=== PATIENT | male | born 1945 | race Caucasian/White ===

== ENCOUNTER 2017-07-22 15:23 | Outpatient (CLI) | payer MEDICARE, BC ==
--- NOTE | 2017-07-22 16:43 | ULT ---
BILATERAL UPPER EXTREMITY VENOUS MAPPIN07/22/17 HISTORY: End-stage renal disease. Evaluate for placement of arteriovenous dialysis fistula. FINDINGS: There is normal flow seen within the bilateral internal jugular and subclavian veins with normal lume n compressibility involving each axillary vein. RIGHT UPPER EXTREMITY BRACHIAL ARTERY: 5.6 mm RADIAL ARTERY: 3.1 mm ULNAR ARTERY: 2.3 mm CEPHALIC VEIN Upper Arm: 1.3 mm Mid Arm: 0.9 mm Distal Arm: 1.7 mm Antecubital Fossa: 1.5 mm Proximal Forearm: 2 mm Mid Forearm: 3.3 mm Distal Forearm: 3.2 mm BASILIC VEIN Upper Arm: 8.5 mm Mid Arm: 5.3 mm Distal Arm: 5.1 mm Antecubital Fossa: 4.8 mm Proximal Forearm: 1.9 mm Mid Forearm: 1.3 mm Distal Forearm: 1.8 mm LEFT UPPER EXTREMITY BRACHIAL ARTERY: 5.2 mm RADIAL ARTERY: 3.2 mm ULNAR ARTERY: 3 mm CEPHALIC VEIN Upper Arm: 1.7 mm Mid Arm: 1.3 mm Distal Arm: 1.2 mm Antecubital Fossa: 1.9 mm Proximal Forearm: 2.7 mm Mid Forearm: 2.7 mm Distal Forearm: 3 mm BASILIC VEIN Upper Arm: 5.2 mm Mid Arm: 4.8 mm Distal Arm: 4.3 mm Antecubital Fossa: 2.9 mm Proximal Forearm: 8.1 mm Mid Forearm: 1.4 mm Distal Forearm: 1.9 mm IMPRESSION: The venous diameters of the bilateral upper extremity basilic and cephalic veins are as described abo sarah. POS: [facility]
== END 2017-07-22 15:24 | disposition home or self-care (01) ==
LOC: ULT 15:23
PROVIDERS: ATTEND Internal Medicine
DX: Z01.818 Encounter for other preprocedural examination (principal); N18.6 End stage renal disease
CPT/HCPCS: 93970; G0365

== ENCOUNTER 2017-08-24 16:54 | Outpatient (CLI) | payer MEDICARE, BC ==
[2017-08-24 18:00] LABS: #Basophils 0.1 thou/uL (0.0-0.2); #Eosinphils 0.7 thou/uL (0.0-0.7); #Lymphocytes 1.5 thou/uL (1.20-3.40); #Monocytes 0.8 thou/uL (0.11-0.59); #Neutrophils 5.9 thou/uL (1.40-6.50); %Basophils 1.1 % (0.0-1.0); %Eosinophils 7.5 % (0.0-10.0); %Lymphocytes 17.1 % (21.0-51.0); %Monocytes 9.2 % (0.0-10.0); %Neutrophils 65.1 % (42.0-75.0); Hemoglobin 11.6 g/dL (14.0-18.0); Mean Corpuscular HGB CONC 32.6 g/dL (32.0-36.0); Mean Corpuscular Hemoglobin 29.8 pg (27.0-31.0); Mean Corpuscular Volume 91.3 fl (80.0-94.0); Mean Platelet Volume 7.5 fL (7.4-10.4); Platelet Count 239 thou/uL (130-400); RBC Distribution Width 15.6 % (11.5-14.5); Red Blood Cell (RBC) Count 3.89 mill/uL (4.70-6.10)
[2017-08-24 18:22] LABS: Anion Gap 18 mmol/L (10-20); BUN (Urea Nitrogen) 73 mg/dL (8.4-25.7); Calc. Creatinine Clearance 0 mL/min (70-130); Calcium 9.4 mg/dL (7.8-10.44); Carbon Dioxide 22 mmol/L (23-31); Chloride 100 mmol/L (98-107); Estimated GFR-MDRD 8; Glucose 107 mg/dL (83-110); Potassium 4.9 mmol/L (3.5-5.1); Sodium 135 mmol/L (136-145)
== END 2017-08-24 16:55 | disposition home or self-care (01) ==
LOC: LABBT 16:54
PROVIDERS: ATTEND Specialist
DX: Z01.818 Encounter for other preprocedural examination (principal); I12.0 Hypertensive chronic kidney disease with stage 5 chronic kidney disease or end stage renal disease; N18.6 End stage renal disease
CPT/HCPCS: 80048; 85025; 93005; 93010

== ENCOUNTER 2017-08-28 08:01 | Day surgery (SDC) | payer MEDICARE, BC ==
[2017-08-24 17:00] VITALS: BMI 26.3
--- NOTE | 2017-08-24 23:00 | HP ---
HISTORY OF PRESENT ILLNESS: Mr. 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 Dialyzes, [facility] [place] Thursday, , and Thursday, followed by Dr. Se cruz. Patient had a dialysis catheter placed at [facility] 05/27/2017. He has been di alyzing Thursday, , and Thursday at [facility]. He presents for more definitive dialysis access. Ultrasound vein mapping in both arms at [facility] on 07/22/2017 reveals cephalic v ein, right, 1.3, 0.9, 1.7 mm. At the antecubital fossa, 1.5 mm, distal forearm 2 mm, 3.3 and 3.2 mm, basilic vein upper arm 8.5, 5.3, 5.1, 4.8 mm. Left arm cephalic vein 1.7, 1.3, 1.2, 1.9, 2.7, 2.7, 3 mm, basilic vein 5.2, 4.8, 4.3 mm, 2.9 mm antecubital fossa, 8.1, 1.4, 1.9 mm distal forearm. Asim n is for a right arm fistula, possible Margaret at the wrist or possible more proximal fistula, possibl y, he may need a basilic vein transposition fistula has been discussed. Patient's home health has be en visited by the peritoneal dialysis nurse. He has PAD. He does not consider that, but is a future consideration. PAST MEDICAL HISTORY: BPH, coronary artery disease, status post myocardial infarction 2017 with 2 co ronary stents placed. Right kidney disease, stroke in the past 20 years ago, living with a left eleno paresis. He still has pain from this, although moderate, has recovered, diabetes mellitus, insulin-d ependent type 2, hypertension, hyperlipidemia, history of renal cell carcinoma. ALLERGIES: None. PAST SURGICAL HISTORY: Left nephrectomy for renal cell carcinoma, coronary stents placed. He has lopez d a colonoscopy many years ago. REVIEW OF SYSTEMS: Otherwise, noncontributory. PHYSICAL EXAMINATION: VITAL SIGNS: 177 pounds, 110/61, 76, 99.3 degrees. HEENT: Unremarkable. LUNGS: Clear to auscultation. CARDIAC: Regular rate and rhythm without murmur or gallop. ABDOMEN: Soft, nontender, no masses. Supraumbilical scar for nephrectomy extraction point. EXTREMITIES: Unremarkable. Palpable radial pulses noted to possible vein seen. ASSESSMENT AND PLAN: End-stage renal disease - hemodialysis catheter dependent since 05/27/2017 when it was placed at [facility]. He dialyzes at [facility] in [place], Thursday, , Thursday. He lives in [place]. Plan is to place a right arm primary fistula, Margaret versus more proximal. He understands the possibility, he may need a staged basilic vein transposition versus pro sthetic graft. He understands risks of infection, bleeding, reoperation, malfunction of the fistula and consents.
[2017-08-28] MEDS ORDERED: CEFAZOLIN/Water 2 GM/20 ML SYRINGE ONE (08:32)
[2017-08-28] MEDS ORDERED: Midazolam HCl 2 mg/2 ml Vial ONE (09:02)
[2017-08-28] MEDS ORDERED: Fentanyl 100 MCG/2 ML VIAL ONE (09:02)
[2017-08-28] MEDS ORDERED: Meperidine HCl/PF 25 MG/ML VIAL ONE ×2 (09:49)
[2017-08-28] MEDS ORDERED: Heparin 5,000 UNITS/ML VIAL ONE (09:52)
[2017-08-28] MEDS ORDERED: Protamine Sulfate 50 MG/5 ML VIAL ONE (09:52)
[2017-08-28] MEDS ORDERED: Bupivacaine HCl 0.5%/Epinephrine 1:200,000/PF 30 ml Vial ONE ×2 (09:52→15:46)
[2017-08-28] MEDS ORDERED: Lidocaine 2% 10 ML INJ ONE (09:52)
[2017-08-28] MEDS ORDERED: Propofol 500 MG/50 ML VIAL ONE (10:11)
[2017-08-28] MEDS ORDERED: Heparin 10,000 UNITS/ 10 ML VIAL ONE ×2 (14:40→16:55)
--- NOTE | 2017-08-28 16:14 | OP ---
DATE OF PROCEDURE: 08/28/2017 PREOPERATIVE DIAGNOSES: End-stage renal disease, poor veins by ultrasound vein mapping left arm, sup erior right arm suggesting basilic vein possibility fistula. POSTOPERATIVE DIAGNOSES: End-stage renal disease, poor veins by ultrasound vein mapping left arm, ramirez perior right arm suggesting basilic vein possibility fistula. PROCEDURES PERFORMED: Right arm primary AV fistula, perforating branch antecubital vein to proximal radial artery, which was of the excellent size. Outflow basilic vein only without communication to t he cephalic vein. Retrograde antecubital vein was large and patency maintained. Calibration to a 4 mm dilator, outflow basilic vein. Exploration of right wrist noting cephalic vein at the wrist to be too small. ANESTHESIA: Regional anesthesia. ESTIMATED BLOOD LOSS: 27 mL. BLOOD TRANSFUSED: None. PROCEDURE IN DETAIL: The patient was taken to the operating room under regional anesthesia and intra venous sedation, right upper extremity was prepped with ChloraPrep, draped in routine fashion. An in cision was made in the proximal volar forearm longitudinally below the antecubital fossa, carried noah n through the skin and subcutaneous tissue and a very large antecubital vein appreciated. It was lisandro reciated that there was no communication of the cephalic vein. Cephalic vein was searched for latera lly and could not be found. Basilic vein went to the medial arm as expected. A perforating branch a ntecubital vein dissected free and directed towards a large radial artery. Radial artery was dissect ed free and surrounded with Silastic loop. The patient was given 6000 units of heparin intravenously . Considering the large antecubital vein, incision was made in the right wrist carried down through the skin and subcutaneous tissue. The cephalic vein at the wrist was inadequate and this wound was c losed by approximating subcutaneous tissues with 3-0 Monocryl, skin with subdermal 4-0 Monocryl. Att ention then was turned to the proximal forearm. A perforating branch and antecubital vein dissected free. Branches divided between 4-0 silk ties and clips and spatulated over a branch point and interr ogated with coronary dilators, passing coronary dilators from a 2 mm to a 4 mm coronary dilator out t he basilic vein outflow. There was a large antecubital vein, retrograde preserved. Proximal radial artery was clamped proximally and distally and longitudinal arteriotomy made sharply and elongated wi th the Eli scissors for a 2 cm anastomosis and end perforating branch of the antecubital vein to th e side proximal radial artery anastomosis with continuous suture of 6-0 Prolene, releasing vascular c lamps, gaining hemostasis with 6-0 Prolene and 4-0 silk ties, noting good flow Doppler signal at the basilic vein. Good hemostasis noted. The patient was given 25 mg of protamine intravenously by Meño juares. Subcutaneous tissues approximated with 3-0 Monocryl, skin with subdermal 4-0 Monocryl and De rmaGlue applied.
[2017-08-28] MEDS ORDERED: ePHEDrine/0.9% NaCl/PF SYRINGE 50 mg/10 ml ONE (16:55)
[2017-08-28] MEDS ORDERED: PHENYLEPHRINE-NS 100 MCG/ML 10 ML SYRINGE ONE (16:55)
== END 2017-08-28 15:00 | disposition home or self-care (01) ==
LOC: SDC 08:01
PROVIDERS: ATTEND Specialist
PROC: 031B09F Bypass Right Radial Artery to Lower Arm Vein with Autologous Venous Tissue, Open Approach (ICD-10-PCS; principal; 2017-08-28)
DX: I12.0 Hypertensive chronic kidney disease with stage 5 chronic kidney disease or end stage renal disease (principal); E11.22 Type 2 diabetes mellitus with diabetic chronic kidney disease; N18.6 End stage renal disease; I25.10 Atherosclerotic heart disease of native coronary artery without angina pectoris; N40.0 Benign prostatic hyperplasia without lower urinary tract symptoms; I25.2 Old myocardial infarction; E78.5 Hyperlipidemia, unspecified; Z90.5 Acquired absence of kidney; Z95.5 Presence of coronary angioplasty implant and graft; Z98.890 Other specified postprocedural states; Z85.528 Personal history of other malignant neoplasm of kidney; Z99.2 Dependence on renal dialysis
CPT/HCPCS: 96374; J0131; J0670; J1644; J2175; J2250; J2704; J2720; J3010

== ENCOUNTER 2017-09-30 05:37 | Day surgery (SDC) | payer MEDICARE, BC ==
--- NOTE | 2017-09-24 14:12 | HP ---
HISTORY OF PRESENT ILLNESS: Az Warren is a 72-year-old male patient who dialyzes at [facility] on Thursday, and Thursday. He is followed by Dr. Candelario. He underwent a right arm dialy sis fistula 08/28/2017, and he was noted at that time during the operation that he would need a basil ic vein transposition fistula. He was seen today and his fistula is working well, has good thrill an d bruit. His wound has a small hematoma. Plan is for basilic vein transposition fistula in the next two weeks as an outpatient under regional anesthesia. He understands the risks and benefits of the procedure and consents. The patient is a retired contractor, lives in [place], [place] and is followed by Dr. Chiu, Nephrology. He initially had a dialysis catheter placed at [facility] 0 05/27/2017. He dialyzes Thursday, and Thursday at [facility]. PAST MEDICAL HISTORY: BPH, coronary artery disease, status post myocardial infarction in 2017 with 2 coronary artery stents, right kidney with chronic kidney disease, stroke in the past 20 years ago wi th residual left hemiparesis. He still has pain from this, although moderate and has mostly recovere d and is mobile independently. Diabetes mellitus, insulin-dependent type 2, hypertension, hyperlipid emia, history of renal cell carcinoma and supposedly has a metastatic focus in his lung that they hav e been following. He is up to date on his colonoscopies. PAST SURGICAL HISTORY: Left nephrectomy for renal cell carcinoma, coronary stents placed, colonoscop y many years ago. REVIEW OF SYSTEMS: Noncontributory. PHYSICAL EXAMINATION: VITAL SIGNS: 123/62, 85, 99.7 degrees. HEENT: Unremarkable. LUNGS: Clear to auscultation. CARDIAC: Regular rate and rhythm without murmur or gallop. ABDOMEN: Soft, nontender. EXTREMITIES: He has a good functioning right hand. He has well-healed surgical wound in proximal vo lar forearm below the antecubital fossa. He has a small hematoma. There is no infection. He has a good thrill and bruit. He has outflow of the fistula. ASSESSMENT AND PLAN: We will plan basilic vein transposition fistula, right arm to allow functioning fistula. Risk of infection, bleeding, reoperation, nerve injury, surgery explained and he consents. We will plan this as an outpatient under regional anesthesia. IV access blood draws through his di alysis catheter.
[2017-09-29 12:20] VITALS: BMI 25.8
[2017-09-30] MEDS ORDERED: CEFAZOLIN/Water 2 GM/20 ML SYRINGE ONE (06:05)
[2017-09-30] MEDS ORDERED: Bupivacaine/Epinephrine 0.25% 30 ML VIAL ONE (06:37)
[2017-09-30] MEDS ORDERED: Protamine Sulfate 50 MG/5 ML VIAL ONE (06:37)
[2017-09-30] MEDS ORDERED: Heparin 5,000 UNITS/ML VIAL ONE (06:37)
[2017-09-30] MEDS ORDERED: Lidocaine 2% 10 ML INJ ONE (06:37)
[2017-09-30 07:05] LABS: #Basophils 0.1 thou/uL (0.0-0.2); #Eosinphils 0.6 thou/uL (0.0-0.7); #Lymphocytes 1.1 thou/uL (1.20-3.40); #Monocytes 0.9 thou/uL (0.11-0.59); %Basophils 0.7 % (0.0-1.0); %Eosinophils 5.6 % (0.0-10.0); %Lymphocytes 10.6 % (21.0-51.0); %Monocytes 8.2 % (0.0-10.0); %Neutrophils 74.8 % (42.0-75.0); Hemoglobin 9.5 g/dL (14.0-18.0); Mean Corpuscular HGB CONC 34.8 g/dL (32.0-36.0); Mean Corpuscular Hemoglobin 30.1 pg (27.0-31.0); Mean Corpuscular Volume 86.4 fl (80.0-94.0); Mean Platelet Volume 6.6 fL (7.4-10.4); Platelet Count 257 thou/uL (130-400); RBC Distribution Width 13.7 % (11.5-14.5); Red Blood Cell (RBC) Count 3.14 mill/uL (4.70-6.10); White Blood Cell (WBC) Count 10.7 thou/uL (4.8-10.8)
[2017-09-30] MEDS ORDERED: Midazolam HCl 5 mg/5 ml Vial ONE (07:14)
[2017-09-30] MEDS ORDERED: Propofol 500 MG/50 ML VIAL ONE (07:15)
[2017-09-30 07:26] LABS: Anion Gap 13 mmol/L (10-20); BUN (Urea Nitrogen) 33 mg/dL (8.4-25.7); Calc. Creatinine Clearance 17 mL/min (70-130); Calcium 9.1 mg/dL (7.8-10.44); Carbon Dioxide 26 mmol/L (23-31); Chloride 99 mmol/L (98-107); Estimated GFR-MDRD 14; Glucose 122 mg/dL (83-110); Potassium 3.9 mmol/L (3.5-5.1); Sodium 134 mmol/L (136-145)
[2017-09-30] MEDS ORDERED: Fentanyl 100 MCG/2 ML VIAL ONE (07:34)
[2017-09-30] MEDS ORDERED: Midazolam HCl 2 mg/2 ml Vial ONE (07:34)
[2017-09-30] MEDS ORDERED: Heparin 10,000 UNITS/ 10 ML VIAL ONE ×2 (11:09→15:01)
--- NOTE | 2017-09-30 13:06 | OP ---
DATE OF PROCEDURE: 09/30/2017 PREOPERATIVE DIAGNOSIS: End-stage renal disease and need a basilic vein transposition fistula, right arm. POSTOPERATIVE DIAGNOSIS: End-stage renal disease and need a basilic vein transposition fistula, righ t arm. PROCEDURE: Basilic vein transposition fistula, right arm. SURGEON: Andres Nur M.D. ANESTHESIA: Regional TIVA, local 0.5% Marcaine with epinephrine, 30 mL, mixed with 2% Xylocaine 10 m L volume mixture used. ESTIMATED BLOOD LOSS: Less than 25 mL BLOOD TRANSFUSED: None. Note: Excellent vein. PROCEDURE: The patient was taken to the operating room where under regional anesthesia and intraveno us sedation, right upper extremity was prepared with ChloraPrep, draped in routine fashion. Incision was made from the proximal volar forearm through the old scar and carried up through the medial aspe ct of the upper arm to the axilla, carried down to the subcutaneous tissue to the deep fascia mobili zing the basilic vein, dividing branch with 4-0 silk ties and clips. Vein marked. Patient was given 6000 units heparin intravenously after new tunnel made anteriorly and subcutaneous tissue using the Briseida-Gabi tunneler 12 mm head. A 12-mm head was exchanged for a 6-mm head. After adequate heparin circulation, the basilic vein just beyond the perforating branch arterial inflow in the proximal fore arm was divided placing the vascular clamps on the arterial inflow to the basilic vein. It was divid ed in spatulated fashion and connected to the tunneler and retunneled and brought out through the inc ision and flushed with heparinized saline solution where it was appreciated to flush well without obs truction without torsion. End to end vein anastomosis created with continuous suture of 6-0 Prolene, releasing vascular clamps, noting good flow in the fistula. The patient was given 50 mg of protamin e intravenously. Good hemostasis noted and obtained with the cautery and clips and 4-0 silk ties. S urgiSeal placed in the vein harvest bed and subcutaneous tissues approximately 3-0 Monocryl, skin wit h sabina and Xeroform sterile dressings applied and Julio wrap applied. Patient tolerated the procedu re well.
[2017-09-30] MEDS ORDERED: Bupivacaine HCl 0.5%/Epinephrine 1:200,000/PF 30 ml Vial ONE (14:21)
[2017-09-30] MEDS ORDERED: ePHEDrine/0.9% NaCl/PF SYRINGE 50 mg/10 ml ONE (15:01)
[2017-09-30] MEDS ORDERED: PHENYLEPHRINE-NS 100 MCG/ML 10 ML SYRINGE ONE (15:01)
[2017-09-30] MEDS ORDERED: PROPOFOL 200 MG/20 ML VIAL ONE (15:01)
[2017-09-30] MEDS ORDERED: Lidocaine 1% PF 5 ML VIAL ONE (15:01)
== END 2017-09-30 11:30 | disposition home or self-care (01) ==
LOC: SDC 05:37
PROVIDERS: ATTEND Specialist
PROC: 05SB0ZZ Reposition Right Basilic Vein, Open Approach (ICD-10-PCS; principal; 2017-09-30)
DX: I12.0 Hypertensive chronic kidney disease with stage 5 chronic kidney disease or end stage renal disease (principal); E11.22 Type 2 diabetes mellitus with diabetic chronic kidney disease; N18.6 End stage renal disease; N40.0 Benign prostatic hyperplasia without lower urinary tract symptoms; I25.10 Atherosclerotic heart disease of native coronary artery without angina pectoris; I25.2 Old myocardial infarction; I69.354 Hemiplegia and hemiparesis following cerebral infarction affecting left non-dominant side; Z85.528 Personal history of other malignant neoplasm of kidney; Z79.4 Long term (current) use of insulin; Z79.82 Long term (current) use of aspirin; Z79.02 Long term (current) use of antithrombotics/antiplatelets; Z79.899 Other long term (current) drug therapy; Z95.5 Presence of coronary angioplasty implant and graft; Z99.2 Dependence on renal dialysis
CPT/HCPCS: 80048; 85025; J0670; J1644; J2001; J2250; J2704; J2720; J3010